=== PATIENT | male | born 1990 | race Two or more races ===

== ENCOUNTER 2024-04-06 14:50 | Emergency (ER) | payer MEDICARE, MEDICAID, SELFPAY ==
[2024-04-06 15:34] VITALS: BP 113/81; PULSE 130; RESP 18; TEMP 36.3; O2SAT 98
--- NOTE | 2024-04-06 15:47 | XR_ITS ---
Examination: CT abdomen and pelvis without contrast. Coronal 3-D reconstructions. Sagittal 2-D reconstructions. Date and time of exam:April 06, 2024 1601 hrs. Indications: Dysuria flank and abdominal pain beginning 10 days ago CTDI: vol (mGy): 8.58 DLP: (mGycm): 508 Technique: Axial images of the abdomen have been obtained, 3 mm slice thickness Intravenous contrast material has not been administered. Low dose protocols were performed. One or more of the following dose reduction techniques were used; automated exposure control, adjustment of the mA and/or KV according to patient size, use of iterative reconstruction technique. Findings: Diffuse significant fatty infiltration throughout the liver No gallstones Spleen not enlarged No pancreatic or adrenal mass No renal or ureteral calculi, no hydronephrosis Normal appendix Aorta normal size 5 mm fat-containing umbilical hernia Colonic diverticulosis, no diverticulitis Urinary bladder intact No prostatomegaly Impression: No renal or ureteral calculi, no hydronephrosis No perinephric stranding Normal appendix Colonic diverticulosis, no diverticulitis No bladder mass or bladder calculi
--- NOTE | 2024-04-06 15:47 | PD.EDADULT ---
ED General RME/HPI General Chief complaint: Urogenital-Male Stated complaint: HURTS TO PEE; BODY/THROAT HURTS Time Seen by Provider: 04/06/24 15:46 Arrival date/time: 04/06/24 14:50 CC: Painful urination HPI per the father approximately 10 days was started on cefdinir and nitrofurantoin 3 days ago without relief. Father reports no fever nausea vomiting or diarrhea. Patient states patient has a history of urinary retention secondary to a restricted ureter several years ago and is concerned whether the ureter has become rerestricted as the patient was reluctant to allow anybody to manipulate his penis for a Kinney catheter. Related Data Home Medications ?Medication ?Instructions ?Recorded ?Confirmed loratadine 10 mg tablet 10 mg PO QDAY 03/24/20 08/01/22 pediatric multivitamin no.30 1 tab PO BID 03/24/20 08/01/22 (Gummies Children Multivitamin chewable tablet) Allergies Allergy/AdvReac Type Severity Reaction Status Date / Time erythromycin base Allergy Mild RASH Verified 08/01/22 13:10 sulfisoxazole Allergy Mild RASH Verified 08/01/22 13:10 Course Orders Category Date Time Status CT abdomen pelvis wo con Stat Exams 04/06/24 15:47 Ordered CBC Stat Lab 04/06/24 15:47 Ordered CMP [Comprehensive Metabolic Panel] Stat Lab 04/06/24 15:47 Ordered Urinalysis Stat Lab 04/06/24 15:47 Ordered Vital Signs Vital signs: Vital Signs Temperature 97.3 F 04/06/24 15:34 Pulse Rate 130 H 04/06/24 15:34 Respiratory Rate 18 04/06/24 15:34 Blood Pressure 113/81 04/06/24 15:34 Pulse Oximetry (%) 98 04/06/24 15:34 Oxygen Delivery Method Room Air 04/06/24 15:34 Discharge Plan Prescriptions/Referrals Prescriptions/Med Rec: No Action loratadine 10 mg Tablet 10 mg PO QDAY Gummies Children Multivitamin Tablet,Chewable 1 tab PO BID Patient/Caregiver Discharge Instructions Print Language: [place]
--- NOTE | 2024-04-06 15:49 | EDRME_ITS ---
Rapid Medical Screening Exam [facility] Arrival date/time: 04/06/24 14:50 CC: Painful urination HPI patient has had painful urination x 10 days was seen by PCP put on cefdinir and nitrofurantoin 3 days ago without relief. 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 The patient had a Kinney placement back then but was very difficult to manage as he did not allow people to manipulate the Kinney catheter.. Chief Complaint: Urogenital-Male Time Seen by Provider: 04/06/24 15:46 Vital signs: Vital Signs Temperature 97.3 F 04/06/24 15:34 Pulse Rate 130 H 04/06/24 15:34 Respiratory Rate 18 04/06/24 15:34 Blood Pressure 113/81 04/06/24 15:34 Pulse Oximetry (%) 98 04/06/24 15:34 Oxygen Delivery Method Room Air 04/06/24 15:34
[2024-04-06 16:43] LABS: Collection Type, Urine Clean Catch
[2024-04-06 16:50] LABS: Basophils # (Auto) 0.1 Thou/mm3 (0.0-0.2); Basophils % (Auto) 0 % (0-2.5); Eosinophils % (Auto) 0 % (0-10); Hematocrit 44.8 % (41.0-53.0); Hemoglobin 15.7 g/dL (13.5-16.0); Immature Granulocytes % (Auto) 1 % (0-0); Immature Granulocytes Auto 0.08 Thou/mm3 (0.00-0.00); Lymphocytes # (Auto) 1.5 Thou/mm3 (1.0-4.8); Lymphocytes % (Auto) 12 % (10-50); Mean Corpuscular Hemoglobin 32.2 pg (25.0-35.0); Mean Corpuscular Volume 92 fL (80-100); Monocytes # (Auto) 0.4 Thou/mm3 (0.0-0.8); Monocytes % (Auto) 4 % (0-12); Neutrophils # (Auto) 10.2 Thou/mm3 (1.8-7.7); Neutrophils % (Auto) 83 % (37-80); Nucleated Red Blood Cell % 0 /100 WBC (0); Platelet Count 383 Thou/mm3 (140-440); RDW Standard Deviation 45.1 fL (35.1-43.9); Red Blood Count 4.87 Miln/mm3 (4.50-5.90); White Blood Count 12.3 Thou/mm3 (3.8-10.6)
[2024-04-06 17:04] LABS: Bilirubin,Urine 1+ (Negative); Blood,Urine Trace (Negative); Clarity,Urine Turbid (Clear/Hazy); Color,Urine Drk-Yellow (Lt Yel-Yel); Glucose, Urine Negative (Negative); Ketones,Urine Negative (Negative); Leukocyte Esterase,Urine Positive (Negative); Nitrite,Urine Positive (Negative); Protein,Urine 2+ (Neg - Trace); RBC,Urine 6 /hpf (0-3); Specific Gravity,Urine 1.032 (1.001-1.035); Sperm,Urine Present; Squamous Epithelial Cell,Urine 4 /hpf (0-5); Transitional Epi Cells,Urine 1 /hpf (0-5); WBC,Urine 11 /hpf (0-5)
[2024-04-06 17:23] LABS: Alanine Aminotransferase 49 U/L (10-49); Albumin, Serum 4.7 gm/dL (3.5-5.0); Albumin/Globulin Ratio 1.3 (1.2-2.2); Alkaline Phosphatase 51 U/L (46-116); Anion Gap 12 (7-16); Aspartate Amino Transferase 51 U/L (0-34); BUN/Creatinine Ratio 15 Ratio (12-20); Bilirubin,Total 0.9 mg/dL (0.3-1.2); Blood Urea Nitrogen 23 mg/dL (9-23); Calcium 10.1 mg/dL (8.3-10.6); Calcium (Corrected) 10.1 mg/dL (8.5-10.1); Chloride 102 mMol/L (98-107); Creatinine (Component) 1.5 mg/dL (0.6-1.3); Globulin 3.5 gm/dL (2.3-3.5); Glucose 143 mg/dL (74-106); Osmolality,Calculated 283 (275-295); Potassium 3.6 mMol/L (3.4-5.1); Sodium 139 mMol/L (136-145); Total Protein 8.2 gm/dL (5.7-8.2); eGFR > 60 See Note
[2024-04-06 18:57] VITALS: BP 111/71; PULSE 115; RESP 18; TEMP 36.5; O2SAT 97
--- NOTE | 2024-04-06 19:42 | EDNOTE_ITS ---
<Statement entered by Natalie Emanuel MD - 04/08/24 01:46> As co-signing physician, I was present and available for consult prn. I concur with the plan and care as documented by the midlevel provider. ED General RME/HPI General Chief complaint: Urogenital-Male Stated complaint: HURTS TO PEE; BODY/THROAT HURTS Time Seen by Provider: 04/06/24 15:46 Arrival date/time: 04/06/24 14:50 CC: Flank pain abdominal pain HPI onset approximately 10 days ago with progressive increase in severity patient was noted to have a UTI and started on antibiotics 3 days ago with relief. Patient also complaining of sore throat. Patient is a Down syndrome with father at bedside. They were concerned because the patient had a history 2 years ago of a ureter stricture that resulted in a Kinney catheter and they are concerned the UTI was as a result of fluid urine backup. Patient is afebrile nontoxic-appearing not in any acute distress. RME / HPI RME / HPI narrative: 04/06/24 14:50 CC: Painful urination HPI patient has had painful urination x 10 days was seen by PCP put on cefdinir and nitrofurantoin 3 days ago without relief. 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 The patient had a Kinney placement back then but was very difficult to manage as he did not allow people to manipulate the Kinney catheter.. Related Data Home Medications ?Medication ?Instructions ?Recorded ?Confirmed loratadine 10 mg tablet 10 mg PO QDAY 03/24/2008/01 pediatric multivitamin no.30 1 tab PO BID 03/24/20 (Gummies Children Multivitamin chewable tablet) Allergies Allergy/AdvReac Type Severity Reaction Status Date / Time erythromycin base Allergy Mild RASH Verified 08/01/22 13:10 sulfisoxazole Allergy Mild RASH Verified 08/01/22 13:10 Review of Systems Review of Systems Narrative Review of Systems: GEN: No fever, no chills, no weight loss EYES: No discharge, no visual changes, no pain HEENT: No ear pain, no congestion, no sore throat PULM: No shortness of breath, no cough, no congestion CV: No chest pain, no dyspnea on exertion, no palpitations GI: No nausea, no vomiting, no diarrhea, no pain, no constipation : No frequency, no urgency, no dysuria MUSC/SKEL: No joint pain, no back pain SKIN: No rash PSYCH: No hallucinations, no depression HEME/LYMPH: No easy bleeding or bruising tendencies NEURO: No weakness, no headache Past Medical History Past Medical History NEUROLOGIC: Negative Seizures CARDIAC: Positive Cardiac Disorders (clogged artery ) and Cardiac Arrhythmia (heart murmur); Negative Congestive Heart Failure RESPIRATORY: Negative Chronic Obstructive Pulmonary Disease (COPD) or Asthma GASTROINTESTINAL: Negative Gastrointestinal Disorders GENITOURINARY: Positive Genitourinary Disorders; Negative Renal Disease MUSCULOSKELETAL: Negative Musculoskeletal Disorders ENDOCRINE: Negative Endocrine Disorders, Diabetes Mellitus Type 1 or Diabetes Mellitus Type 2 HEMATOLOGIC: Negative Blood Disorders or Sickle Cell Disease OTHER HISTORY: Positive Down Syndrome; Negative Blood Transfusions, Blood Transfusion Reaction, Anesthesia Reactions, Chicken Pox, Measles, Mumps or Cancer Social History SMOKING STATUS: Never smoker ED Exam Narrative Physical exam: [General: Not in any acute distress Head normocephalic HEENT: Within acceptable limits Neck is supple nontender Chest equal chest rise nontender to palpation Respiratory: Clear to auscultation no wheezes crackles or rubs CV: Rate rhythm is regular no murmurs rubs or clicks Abdomen is soft nontender no masses positive bowel sounds all 4 quadrants Back: No CVA tenderness no spinous process tenderness from cervical spine thoracic and lumbar spine Skin: Intact no petechiae rash induration ulceration or crepitus Extremities: Moving all extremity against resistance cap refill less than 2 seconds neurosensory intact Neuro: Awake alert oriented x3 Glascow coma 15 no focal deficits] Course Quality Measures none Orders Category Date Time Status CT abdomen pelvis wo con Stat Exams 04/06/24 15:47 Completed CBC Stat Lab 04/06/24 16:34 Completed CMP [Comprehensive Metabolic Panel] Stat Lab 04/06/24 16:34 Completed Strep A Rapid Stat Lab 04/06/24 19:43 Completed Urinalysis Stat Lab 04/06/24 16:33 Completed Vital Signs Vital signs: Vital Signs Temperature 97.3 F 04/06/24 15:34 Pulse Rate 130 H 04/06/24 15:34 Respiratory Rate 18 04/06/24 15:34 Blood Pressure 113/81 04/06/24 15:34 Pulse Oximetry (%) 98 04/06/24 15:34 Oxygen Delivery Method Room Air 04/06/24 15:34 [facility] Patient data External records reviewed:: [facility] previous records Clinical information provided by:: patient and parent Social determinants that could affect healthcare access:: none Patient has the following chronic illnesses:: Down syndrome prior history of ureter stricture How is presenting disease/condition affected by chronic disease/condition?: u neffected by Evaluation data The following diagnostics were reviewed and interpreted by me:: lab results and radiology exam(s) Lab and/or radiology exams considered but not ordered:: Urine shows positive urinary tract infection CBC shows a mild leukocytosis of 12.3 no anemia thrombocytopenia CMP shows no acute acute electrolyte imbalances creatinine of 1.5 BUN is normal glucose of 143 no transaminitis or T. bili elevation CT of the abdomen shows no acute cystitis bladder enlargement or other acute finding requires emergent or immediate intervention. Strep is negative Interpretation Summary: UTI I suspect is the culprit and here patient is to continue on both antibiotics and follow-up with a primary care provider. Medications Medications considered but not ordered:: None Medication administrations:: None Consultations Consultation(s) initiated? (list below): No Diagnosis Differential Diagnosis ED Complaint MDM: UTI pyelonephritis strep pharyngitis Most likely diagnosis given after review of the tests above:: UTI Admission Indicated Admission indicated?: not indicated Explain why admission is indicated or not indicated:: Stable for discharge Admission Request Was there a request for admission?: No Disposition Plan Disposition Plan: Discharge Discharge Attestation Discharge Attestation: The patient and all family members were given an opportunity to ask questions and understood the discharge instructions. Discharge instructions specifically effects, indications for sooner follow up or return to the emergency department, and the expected course of current diagnosis. Patient condition: Stable Medical Decision Making Differential Diagnosis Differential Diagnosis: UTI pyelonephritis strep pharyngitis Lab Data 04/06/24 16:34 04/06/24 16:34 Labs: Lab Results 04/06/24 04/06/24 04/06/24 Range/Units 16:33 16:34 19:43 WBC 12.3 H (3.8-10.6) Thou/mm3 RBC 4.87 (4.50-5.90) Miln/mm3 Hgb 15.7 (13.5-16.0) g/dL Hct 44.8 (41.0-53.0) % MCV 92 (80-100) fL MCH 32.2 (25.0-35.0) pg MCHC 35.0 (31.0-37.0) g/dl RDW Std Deviation 45.1 H (35.1-43.9) fL Plt Count 383 (140-440) Thou/mm3 Neut % (Auto) 83 H (37-80) % Lymph % (Auto) 12 (10-50) % Gray % (Auto) 4 (0-12) % Eos % (Auto) 0 (0-10) % Baso % (Auto) 0 (0-2.5) % Neut # (Auto) 10.2 H (1.8-7.7) Thou/mm3 Lymph # (Auto) 1.5 (1.0-4.8) Thou/mm3 Gray # (Auto) 0.4 (0.0-0.8) Thou/mm3 Eos # (Auto) 0.0 (0.0-0.5) Thou/mm3 Baso # (Auto) 0.1 (0.0-0.2) Thou/mm3 Immature Gran # (Auto) 0.08 H (0.00-0.00) Thou/mm3 Absolute Nucleated RBC 0.00 (0.00-0.00) Thou/mm3 Immature Gran % 1 H (0-0) % Nucleated RBC % 0 (0) /100 WBC Sodium 139 (136-145) mMol/L Potassium 3.6 (3.4-5.1) mMol/L Chloride 102 (98-107) mMol/L Carbon Dioxide 25.0 (20.0-31.0) mMol/L Anion Gap 12 (7-16) BUN 23 (9-23) mg/dL Creatinine 1.5 H (0.6-1.3) mg/dL Estim Creat Clear Calc Not Performed. eGFR > 60 (60 - ) See Note BUN/Creatinine Ratio 15 (12-20) Ratio Glucose 143 H (74-106) mg/dL Calculated Osmolality 283 (275-295) Calcium 10.1 (8.3-10.6) mg/dL Corrected Calcium 10.1 (8.5-10.1) mg/dL Total Bilirubin 0.9 (0.3-1.2) mg/dL AST 51 H (0-34) U/L ALT 49 (10-49) U/L Alkaline Phosphatase 51 (46-116) U/L Total Protein 8.2 (5.7-8.2) gm/dL Albumin 4.7 (3.5-5.0) gm/dL Globulin 3.5 (2.3-3.5) gm/dL Albumin/Globulin Ratio 1.3 (1.2-2.2) Ur Collection Type Clean Catch Urine Color Drk-Yellow A (Lt Yel-Yel) Urine Clarity Turbid A (Clear/Hazy) Urine pH 6.0 (5.0-7.0) Ur Specific [place] 1.032 (1.001-1.035) Urine Protein 2+ A (Neg - Trace) Urine Glucose (UA) Negative (Negative) Urine Ketones Negative (Negative) Urine Blood Trace (Negative) Urine Nitrite Positive (Negative) Urine Bilirubin 1+ A (Negative) Urine Urobilinogen (Auto) 3.0 (0.0-1.0) mg/dL Ur Leukocyte Esterase Positive (Negative) Urine RBC 6 H (0-3) /hpf Urine WBC 11 H (0-5) /hpf Ur Squamous Epith Cells 4 (0-5) /hpf Ur Transition Epith Cell 1 (0-5) /hpf Urine Bacteria None (None) Urine Sperm Present A (None) Group A Strep Rapid Negative (Negative) Discharge Plan Plan Patient Disposition: HOME (Self Care) Patient condition on transfer: Stable Prescriptions/Referrals Prescriptions/Med Rec: No Action loratadine 10 mg Tablet 10 mg PO QDAY Gummies Children Multivitamin Tablet,Chewable 1 tab PO BID Referrals: Kamar (PCP),MD Michael [Primary Care Provider] - In 1 week Problem List Clinical Impression: Sore throat, UTI symptoms Patient/Caregiver Discharge Instructions Education Materials: Self-Care for Sore Throats, ED Urinary Tract Infections in Men Print Language: [place] Stand Alone Forms: Nyasia Award Info., Work/School Release, Patient Portal Info Letter PA/KALA Supervising Physician PA/KALA Supervising Physician: Hermes Friend ENP
[2024-04-06 20:56] LABS: Strep A Rapid Negative (Negative)
[2024-04-06 21:10] VITALS: PULSE 71; RESP 18; TEMP 36.6; O2SAT 99
== END 2024-04-06 21:11 | disposition home or self-care (01) ==
PROVIDERS: Registered Nurse General Practice; Emergency Provider Emergency Medicine; PCP Family Medicine
DX: N39.0 Urinary tract infection, site not specified (principal); J02.9 Acute pharyngitis, unspecified
CPT/HCPCS: 36415; 74176; 80053; 81001; 85025; 87651; 99284

== ENCOUNTER 2024-04-14 14:52 | Emergency (ER) | payer MEDICARE, MEDICAID, SELFPAY ==
[2024-04-14] VITALS (12 sets, daily range): BP systolic 118–131; BP diastolic 55–88; PULSE 98–145; RESP 15–94; TEMP 36.7–36.9; O2SAT 94–99; BMI 31.7
--- NOTE | 2024-04-14 16:37 | PC.NURSE ---
PT AAOX4 WITH BROTHER AT BEDSIDE STATES THAT HE IS NOT WANTING TO BE COMPLIANT AT HOME, NOT WANTING TO EAT AND HAVE A BEHAVIORAL ISSUE AT HOME.
--- NOTE | 2024-04-14 18:22 | EDNOTE_ITS ---
ED General RME/HPI General Chief complaint: General Adult/Misc Complain Stated complaint: WEAKNESS Source: patient, family and EMS Arrival date/time: 04/14/24 14:52 Mode of arrival: EMS RME / HPI RME / HPI narrative: Dr. Hudson?s Main ED Evaluation: 33-year-old developmentally delayed male was brought in by ambulance from home due to weakness. According to EMS, the family reports that he has been less active than usual, with decreased oral intake and a lack of interest in activities. The patient also reports pain, particularly with eating, urination and bowel movements. He was evaluated in the ED last week for a urinary tract infection (UTI) and was treated with antibiotics. The patient was observed rubbing his throat. His director content marketing, present at the bedside, reports that this behavior has been a tic for the past year. HPI and ROS provided by family/director content marketing at bedside. Related Data Home Medications ?Medication ?Instructions ?Recorded ?Confirmed loratadine 10 mg tablet 10 mg PO QDAY 03/24/2004/14 pediatric multivitamin no.30 1 tab PO BID 03/24/2005/06 (Gummies Children Multivitamin chewable tablet) SERTRALINE HCL 50 mg PO QDAY 04/14/2404/14 olanzapine 5 mg disintegrating 5 mg PO QDAY 04/14/24 0 04/14/24 tablet sertraline 25 mg tablet See Rx Instructions .Route . COMPLEX 04/14/24 04/14/24 Held on 04/14/24. Instructions: Order Change Previous Rx's ?Medication ?Instructions ?Recorded fluconazole 40 mg/mL oral 150 mg (3.75 mL) PO QDAY 21 days 04/14/24 suspension (Diflucan) #78.75 mL lorazepam 0.5 mg tablet (Ativan) 0.5 mg PO QHSPRN PRN anxiety #10 04/14/24 tabs Allergies Allergy/AdvReac Type Severity Reaction Status Date / Time erythromycin base Allergy Mild RASH Verified 04/14/24 18:05 sulfisoxazole Allergy Mild RASH Verified 04/14/24 18:05 Review of Systems Review of Systems Systems Reviewed: All systems reviewed, normal except as documented Narrative Review of Systems: HPI and ROS provided by family/director content marketing at bedside. Past Medical History Past Medical History NEUROLOGIC: Negative Seizures CARDIAC: Positive Cardiac Disorders, Cardiac Arrhythmia and Heart Murmur; Negative Congestive Heart Failure RESPIRATORY: Negative Chronic Obstructive Pulmonary Disease (COPD) or Asthma GASTROINTESTINAL: Negative Gastrointestinal Disorders GENITOURINARY: Positive Genitourinary Disorders; Negative Renal Disease MUSCULOSKELETAL: Negative Musculoskeletal Disorders ENDOCRINE: Negative Endocrine Disorders, Diabetes Mellitus Type 1 or Diabetes Mellitus Type 2 HEMATOLOGIC: Negative Blood Disorders or Sickle Cell Disease OTHER HISTORY: Positive Down Syndrome; Negative Blood Transfusions, Blood Transfusion Reaction, Anesthesia Reactions, Chicken Pox, Measles, Mumps or Cancer Social History SMOKING STATUS: Never smoker ED Exam Narrative Physical exam: GENERAL APPEARANCE: alert and oriented to person and place, developmentally delayed, noteable for down syndrome, well-developed, well-nourished VITALS: All vitals were reviewed and the pulse ox is % on room air, which is normal according to my interpretation. HEENT: Normocephalic, atraumatic; pupils equal, round, reactive to light; EOMI. The patient exhibits intraoral and posterior oropharyngeal injection with extensive white plaque-like exudates over the pharynx and soft palate. NECK: Supple LUNGS: CTABL; no wheezes, no rales, no rhonchi HEART: Regularly tachycardic rate in the 120s, regular rhythm; normal S1, S2; no murmurs ABDOMEN: non distended; normal BS; soft, no tenderness, no guarding, no rebound; no masses, no organomegaly, no hernia BACK: no CVA tenderness EXTREMITIES: atraumatic; no edema NEUROLOGIC: awake; alert and oriented x4; cranial nerves II-XII grossly intact; no focal sensory or motor deficits PSYCHIATRIC: appropriate mood and affect SKIN: warm, dry, normal color; no rashes Course Course Course Narrative: 1824 Sepsis alert initiated. Orders made at this time are congruent with ED Adult Sepsis Order List. Re-evaluation is to be completed. 1854 Sepsis reassessment performed consisting of lab review, vitals, physical exam including auscultation of heart, lungs, and visual evaluation of capillary refills, mucosal membranes and extremities. Quality Measures Current suspected stage: sepsis Possible source: unknown Blood cultures ordered: yes Antibiotic ordered: Yes Pertinent labs: 04/14/24 18:45 Lactic Acid 2.1 H mMol/L (0.4-2.0) Procalcitonin 0.08 ng/ml (0.0-0.49) sepsis Orders Category Date Time Status Bedside COVID-19 Antigen Test NOW Care 04/14/24 18:29 Active Bedside Influenza A&B Antigen Test NOW Care 04/14/24 18:29 Completed Cloth Stock Sorter STAT Care 04/14/24 18:24 Active Continuous Pulse Oximetry STAT Care 04/14/24 18:24 Completed EKG (ED ONLY) *Do not use* NOW Care 04/14/24 18:24 Completed Insert IV NOW Care 04/14/24 18:24 Completed Miscellaneous Nursing Order NOW Care 04/14/24 18:23 Active NPO STAT Care 04/14/24 18:24 Active EKG (ED Only) Stat Exams 04/14/24 18:24 Ordered XR chest 1V portable Stat Exams 04/14/24 18:23 Completed B-Type Natriuretic Peptide Stat Lab 04/14/24 18:45 Completed Blood Culture (Lab) Stat Lab 04/14/24 18:45 Received CBC Stat Lab 04/14/24 18:45 Completed Comprehensive Metabolic Panel Stat Lab 04/14/24 18:45 Completed LDH (Lactate Dehydrogenase) Stat Lab 04/14/24 18:45 Completed Lactate (Lactic Acid) Stat Lab 04/14/24 18:45 Results Lipase Stat Lab 04/14/24 18:45 Completed Magnesium Stat Lab 04/14/24 18:45 Completed Partial Thromboplastin Time Stat Lab 04/14/24 18:45 Completed Phosphorous Stat Lab 04/14/24 18:45 Completed Procalcitonin Stat Lab 04/14/24 18:45 Completed Prothrombin Time with INR Stat Lab 04/14/24 18:45 Completed Strep A Rapid Stat Lab 04/14/24 19:02 Ordered Troponin I Stat Lab 04/14/24 18:45 Completed Urinalysis Stat Lab 04/14/24 19:02 Completed Urine Culture Stat Lab 04/14/24 18:57 Received VBG [Venous Blood Gas] Stat Lab 04/14/24 18:45 Completed Acetaminophen Ivpb [Ofirmev Inj] Med 04/14/24 19:24 Discontinued 1,000 mg in 100 ml IV X1 Dexamethasone Inj [Decadron Inj] Med 04/14/24 19:24 Discontinued 10 mg PO X1 ONE Fluconazole Susp [Diflucan Susp] Med 04/14/24 19:30 Discontinued 200 mg PO X1 ONE Ketorolac Inj [Toradol Inj] Med 04/14/24 19:24 Discontinued 30 mg IVP X1 ONE Lidocaine 2% Viscous [Xylocaine 2% Viscous] Med 04/14/24 19:30 Discontinued 15 ml PO X1 ONE Sodium Chloride 0.9% 1000 ml [Ns] 1,000 ml Med 04/14/24 20:40 Active IV 999 mls/hr Sodium Chloride 0.9% 1000 ml [Ns] 1,776 ml Med 04/14/24 18:23 Discontinued IV 1,776 mls/hr cefTRIAXone [Rocephin] 1,000 mg Med 04/14/24 18:23 Discontinued SODIUM CHLORIDE 0.9% (Popper) [Ns 0.9% (P)] 50 ml IV X1 Oxygen Delivery NOW RT 04/14/24 18:24 Active Vital Signs Vital signs: Vital Signs Temperature 98.3 F 04/14/24 15:32 Pulse Rate 136 H 04/14/24 15:32 Respiratory Rate 18 04/14/24 15:32 Blood Pressure 128/79 04/14/24 15:32 Pulse Oximetry (%) 96 04/14/24 15:32 Oxygen Delivery Method Room Air 04/14/24 15:32 Procedures -ED EKG Interpretation #1: Date of EK04/14/24 Time of EK:32 Rate: 123 Interpretation: Interpreted by me Additional EKG comment: The EKG, taken on 04/14/24 at 18:32, shows sinus tachycardia with a heart rate of 123 bpm, a normal axis, and no ectopy. Q waves are present in leads II, III, and aVF, with ST abnormalities noted in V1-V5. No evidence of STEMI according to my interpretation. [facility] Patient data External records reviewed:: [facility] previous records and EMS form Clinical information provided by:: family Social determinants that could affect healthcare access:: none Patient has the following chronic illnesses:: see PMH How is presenting disease/condition affected by chronic disease/condition?: u neffected by Evaluation data The following diagnostics were reviewed and interpreted by me:: lab results, radiology exam(s) and EKG tracing(s) Lab and/or radiology exams considered but not ordered:: na Interpretation Summary: 1937 The patient has a normal anion gap with a lactate of 2.1. Findings are consistent with dehydration. Additional workup is still pending. Examination: AP chest single view Exam date and time: April 14, 2024 1919 hrs. Comparison November 13, 2016 Indications: Sepsis today. Findings: Suspicious for early right base pneumonia Normal heart size The osseous structures are intact Impression: Suspicious for early right base pneumonia Dictated By: Deven Puckett MD Medications Medications considered but not ordered:: na Medication administrations:: Medication Administration History Sodium Chloride (Ns) 1,000 mls @ 999 mls/hr IV .Q1H1M ONE Stop: 04/14/24 21:40 Last Admin: 04/14/24 20:59 Dose: 999 mls/hr Documented By: TC Discontinued Medications Dexamethasone Sodium Phosphate (Dexamethasone Sod Phos Inj 10 Mg/Ml Vial) 10 mg PO X1 ONE Stop: 04/14/24 19:25 Last Admin: 04/14/24 20:01 Dose: 10 mg Documented By: TC Fluconazole (Fluconazole Susp 40 Mg/Ml Ml) 200 mg PO X1 ONE Stop: 04/14/24 19:31 Last Admin: 04/14/24 20:51 Dose: 200 mg Documented By: TC Sodium Chloride (Ns) 1,776 mls @ 1,776 mls/hr 30 ml/kg infuse over 60 min (1776 ml) IV .Q1H ONE Stop: 04/14/24 19:22 Last Infusion: 04/14/24 21:00 Dose: Infused Documented By: Admin: 04/14/24 18:43 Dose: 1,776 mls/hr Documented By: BD Ceftriaxone Sodium 1,000 mg/ (Sodium Chloride) 50 mls @ 100 mls/hr IV X1 ONE Stop: 04/14/24 18:52 Last Infusion: 04/14/24 21:00 Dose: Infused Documented By: Admin: 04/14/24 19:57 Dose: 100 mls/hr Documented By: TC Acetaminophen (Ofirmev Inj) 1,000 mg in 100 mls @ 250 mls/hr IV X1 ONE Stop: 04/14/24 19:47 Last Infusion: 04/14/24 20:59 Dose: Infused Documented By: Admin: 04/14/24 19:54 Dose: 250 mls/hr Documented By: TC Ketorolac Tromethamine (Ketorolac Inj 30 Mg/Ml Vial) 30 mg IVP X1 ONE Stop: 04/14/24 19:25 Last Admin: 04/14/24 20:01 Dose: 30 mg Documented By: RICHY Lidocaine HCl (Lidocaine Viscous 2% 15 Ml Udc) 15 ml PO X1 ONE Stop: 04/14/24 19:31 Last Admin: 04/14/24 20:51 Dose: 15 ml Documented By: RICHY as above Consultations Consultation(s) initiated? (list below): No Diagnosis Differential Diagnosis ED Complaint MDM: see narrative Most likely diagnosis given after review of the tests above:: Thrush of mouth and esophagus, Dehydration Admission Indicated Admission indicated?: not indicated Explain why admission is indicated or not indicated:: No significant findings indicating inpatient admission Admission Request Was there a request for admission?: No Disposition Plan Disposition Plan: Discharge Discharge Attestation Discharge Attestation: The patient and all family members were given an opportunity to ask questions and understood the discharge instructions. Discharge instructions specifically effects, indications for sooner follow up or return to the emergency department, and the expected course of current diagnosis. Patient condition: Stable Medical Decision Making MDM Narrative MDM Narrative: Differential diagnoses include dehydration, urosepsis, pneumonia-related sepsis, streptococcal infection, esophageal or pharyngeal thrush, and arrhythmia. Scribe Attestation: IFish am scribing for and in the presence of Dr. Hudson. Provider Notation: Although this document has been carefully reviewed, there may still be some phonetic and other typographical errors. These errors are purely grammatical due to imperfections in the software program and should not be construed in any way to compromise the substance of the patient's medical care during this visit. Differential Diagnosis Differential Diagnosis: see narrative Medical Records Medical records reviewed: Yes I reviewed the patient's medical records. Lab Data Lab results reviewed: Yes I reviewed the patient's lab results. 04/14/24 18:45 04/14/24 18:45 Labs: Lab Results 04/14/24 04/14/24 Range/Units 18:45 19:02 WBC 11.2 H (3.8-10.6) Thou/mm3 RBC 4.33 L (4.50-5.90) Miln/mm3 Hgb 13.9 (13.5-16.0) g/dL Hct 40.2 L (41.0-53.0) % MCV 93 (80-100) fL MCH 32.1 (25.0-35.0) pg MCHC 34.6 (31.0-37.0) g/dl RDW Std Deviation 46.5 H (35.1-43.9) fL Plt Count 280 D (140-440) Thou/mm3 Neut % (Auto) 81 H (37-80) % Lymph % (Auto) 13 (10-50) % [place] % (Auto) 5 (0-12) % Eos % (Auto) 1 (0-10) % Baso % (Auto) 0 (0-2.5) % Neut # (Auto) 9.1 H (1.8-7.7) Thou/mm3 Lymph # (Auto) 1.4 (1.0-4.8) Thou/mm3 [place] # (Auto) 0.5 (0.0-0.8) Thou/mm3 Eos # (Auto) 0.1 (0.0-0.5) Thou/mm3 Baso # (Auto) 0.1 (0.0-0.2) Thou/mm3 Immature Gran # (Auto) 0.03 H (0.00-0.00) Thou/mm3 Absolute Nucleated RBC 0.00 (0.00-0.00) Thou/mm3 Immature Gran % 0 (0-0) % Nucleated RBC % 0 (0) /100 WBC PT 11.5 (9.0-12.2) Seconds INR 1.1 (0.9-1.3) APTT 26.1 (22.0-36.0) Seconds VBG pH 7.46 (7.33-7.66) VBG pCO2 32 L (36-56) mmHg VBG pO2 81 H (15-58) mmHg VBG O2 Sat (Luis Manuel) 97 (96-97) % VBG Base Excess -1 (-3-3) Sodium 144 (136-145) mMol/L Potassium 3.7 (3.4-5.1) mMol/L Chloride 111 H (98-107) mMol/L Carbon Dioxide 23.2 (20.0-31.0) mMol/L Anion Gap 10 (7-16) BUN 16 (9-23) mg/dL Creatinine 1.0 (0.6-1.3) mg/dL Estim Creat Clear Calc 102.7 (>60) mL/min eGFR > 60 (60 - ) See Note BUN/Creatinine Ratio 16 (12-20) Ratio Glucose 123 H (74-106) mg/dL Calculated Osmolality 289 (275-295) Lactic Acid 2.1 H (0.4-2.0) mMol/L Calcium 9.5 (8.3-10.6) mg/dL Corrected Calcium 9.5 (8.5-10.1) mg/dL Phosphorus 3.3 (2.4-5.1) mg/dL Magnesium 1.7 (1.6-2.6) mg/dL Total Bilirubin 0.6 (0.3-1.2) mg/dL AST 17 (0-34) U/L ALT 36 (10-49) U/L Alkaline Phosphatase 55 (46-116) U/L Lactate Dehydrogenase 163 (120-246) U/L Troponin I < 0.020 (0.0-0.045) ng/mL B-Natriuretic Peptide < 20 (0-100) pg/mL Total Protein 7.5 (5.7-8.2) gm/dL Albumin 4.2 (3.5-5.0) gm/dL Globulin 3.3 (2.3-3.5) gm/dL Albumin/Globulin Ratio 1.3 (1.2-2.2) Lipase 51 (12-53) U/L Procalcitonin 0.08 (0.0-0.49) ng/ml Ur Collection Type Clean Catch Urine Color Yellow (Lt Yel-Yel) Urine Clarity Clear (Clear/Hazy) Urine pH 6.0 (5.0-7.0) Ur Specific Sullivan 1.035 (1.001-1.035) Urine Protein Trace (Neg - Trace) Urine Glucose (UA) Negative (Negative) Urine Ketones Trace (Negative) Urine Blood Negative (Negative) Urine Nitrite Negative (Negative) Urine Bilirubin Negative (Negative) Urine Urobilinogen (Auto) Negative (0.0-1.0) mg/dL Ur Leukocyte Esterase Negative (Negative) Urine RBC 3 (0-3) /hpf Urine WBC 2 (0-5) /hpf Ur Squamous Epith Cells 1 (0-5) /hpf Urine Bacteria Rare (None) Radiology Data Radiology results reviewed: Yes I reviewed the patient's radiology results. Critical Care Time Critical Care Time Critical Care Time: Yes Total Critical Care Time (min.): 45 Attestation: The high probability of sudden, clinically significant deterioration in the patient?s condition required the highest level of my preparedness to intervene urgently. ? The services I provided to this patient were to treat and/or prevent clinically significant deterioration. Services included the following: chart data review, reviewing nursing notes and/or old charts, documentation time, [employer] web[employer] commerce consultant collaboration regarding findings and treatment options, medication orders and management, direct patient care, vital sign assessments and ordering, interpreting and reviewing diagnostic studies and lab tests. ? Aggregate critical care time includes only time during which I was engaged in work directly related to the patient?s care, as described above, whether at bedside or elsewhere in the Emergency Department. It did not include time spent performing other reported procedures or the services of residents, students, nurses or physician assistants. Discharge Plan Plan Patient Disposition: HOME (Self Care) Disposition Comment: Stable for her discharge Patient condition on transfer: Stable Prescriptions/Referrals Prescriptions/Med Rec: New fluconazole [Diflucan] 40 mg/mL suspension for reconstitution 150 mg PO QDAY 21 Days Qty: 78.75 0RF lorazepam [Ativan] 0.5 mg tablet 0.5 mg PO QHSPRN PRN (Reason: anxiety) Qty: 10 0RF No Action loratadine 10 mg Tablet 10 mg PO QDAY Gummies Children Multivitamin Tablet,Chewable 1 tab PO BID olanzapine 5 mg tablet,disintegrating 5 mg PO QDAY Patient Comments: PLACE 1 TABLET ON THE TONGUE AND ALLOW TO DISSOLVE DAILY sertraline 25 mg tablet See Rx Instructions .ROUTE .COMPLEX Patient Comments: TOME 1 TABLETA POR V A ORAL TODOS LOS D Rx Instructions: 50 MG PO QD; SERTRALINE HCL 50 mg PO QDAY Referrals: Kamar (PCP)Michael MD [Primary Care Provider] - In 1 week Problem List Clinical Impression: Thrush of mouth and esophagus, Dehydration Patient/Caregiver Discharge Instructions Discharge Activity: activity as tolerated Education Materials: Dehydration, Yanet Infection: Thrush, ED Esophagitis, Yanet Additional Instructions: Please return to the emergency department if Jordy has any further medical problems or if he is worsening in any way and we will help you. Otherwise you should follow-up with your primary care doctor within the next several days I believe Jordy has oral and may be esophageal thrush. This is a fungal infection and is quite painful. If you look in the back of his throat you will see that is very red and that there are white, plaque-like exudates. The medicine for this is called fluconazole. There is some of this is waiting for you at your pharmacy. Jordy should receive this once per day for the next 3 weeks. There is also a prescription for Ativan which is best given at night before he goes to bed. Print Language: Hong Konger Stand Alone Forms: [employer] Award Info., Patient Portal Info Letter
--- NOTE | 2024-04-14 18:23 | XR_ITS ---
Examination: AP chest single view Technique one AP portable upright chest single view Exam date and time: April 14, 2024 1919 hrs. Comparison November 13, 2016 Indications: Sepsis today. Findings: Suspicious for early right base pneumonia Normal heart size The osseous structures are intact Impression: Suspicious for early right base pneumonia
--- NOTE | 2024-04-14 18:24 | EKG_ITS ---
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
--- NOTE | 2024-04-14 18:26 | PC.NURSE ---
SEPSIS ALERT INITIATED @182
[2024-04-14] MEDS: SODIUM CHLORIDE 0.9% 1000 ML 1,776 ML 1776 ML IV (18:43)
--- NOTE | 2024-04-14 18:56 | PC.NURSE ---
IN AND OUT NOT DONE PT USED URINAL
[2024-04-14 19:10] LABS: Lactate (Lactic Acid) 2.1 mMol/L (0.4-2.0)
[2024-04-14 19:16] LABS: Basophils # (Auto) 0.1 Thou/mm3 (0.0-0.2); Basophils % (Auto) 0 % (0-2.5); Eosinophils # (Auto) 0.1 Thou/mm3 (0.0-0.5); Eosinophils % (Auto) 1 % (0-10); Hematocrit 40.2 % (41.0-53.0); Hemoglobin 13.9 g/dL (13.5-16.0); Immature Granulocytes % (Auto) 0 % (0-0); Immature Granulocytes Auto 0.03 Thou/mm3 (0.00-0.00); Lymphocytes # (Auto) 1.4 Thou/mm3 (1.0-4.8); Lymphocytes % (Auto) 13 % (10-50); Mean Corpuscular HGB Conc 34.6 g/dl (31.0-37.0); Mean Corpuscular Hemoglobin 32.1 pg (25.0-35.0); Mean Corpuscular Volume 93 fL (80-100); Monocytes # (Auto) 0.5 Thou/mm3 (0.0-0.8); Monocytes % (Auto) 5 % (0-12); Neutrophils # (Auto) 9.1 Thou/mm3 (1.8-7.7); Neutrophils % (Auto) 81 % (37-80); Nucleated Red Blood Cell % 0 /100 WBC (0); Platelet Count 280 Thou/mm3 (140-440); RDW Standard Deviation 46.5 fL (35.1-43.9); Red Blood Count 4.33 Miln/mm3 (4.50-5.90); White Blood Count 11.2 Thou/mm3 (3.8-10.6)
[2024-04-14 19:19] LABS: Collection Type, Urine Clean Catch
[2024-04-14 19:21] LABS: Base Excess, Venous -1 (-3-3); O2 Saturation, Venous 97 % (96-97); PCO2, Venous 32 mmHg (36-56); PO2, Venous 81 mmHg (15-58); pH, Venous 7.46 (7.33-7.66)
[2024-04-14 19:24] LABS: INR 1.1 (0.9-1.3); Partial Thromboplastin Time 26.1 Seconds (22.0-36.0); Prothrombin Time 11.5 Seconds (9.0-12.2)
[2024-04-14 19:33] LABS: Alanine Aminotransferase 36 U/L (10-49); Albumin, Serum 4.2 gm/dL (3.5-5.0); Albumin/Globulin Ratio 1.3 (1.2-2.2); Alkaline Phosphatase 55 U/L (46-116); Anion Gap 10 (7-16); Aspartate Amino Transferase 17 U/L (0-34); BUN/Creatinine Ratio 16 Ratio (12-20); Bilirubin,Total 0.6 mg/dL (0.3-1.2); Blood Urea Nitrogen 16 mg/dL (9-23); Calcium 9.5 mg/dL (8.3-10.6); Calcium (Corrected) 9.5 mg/dL (8.5-10.1); Carbon Dioxide 23.2 mMol/L (20.0-31.0); Chloride 111 mMol/L (98-107); Estimated Creatinine Clearance 102.7 mL/min (>60); Globulin 3.3 gm/dL (2.3-3.5); Glucose 123 mg/dL (74-106); LDH (Lactate Dehydrogenase) 163 U/L (120-246); Lipase 51 U/L (12-53); Magnesium 1.7 mg/dL (1.6-2.6); Osmolality,Calculated 289 (275-295); Phosphorous 3.3 mg/dL (2.4-5.1); Potassium 3.7 mMol/L (3.4-5.1); Procalcitonin 0.08 ng/ml (0.0-0.49); Sodium 144 mMol/L (136-145); Total Protein 7.5 gm/dL (5.7-8.2); Troponin I < 0.020 ng/mL (0.0-0.045); eGFR > 60 See Note
[2024-04-14 19:36] LABS: Bacteria,Urine Rare; Bilirubin,Urine Negative (Negative); Blood,Urine Negative (Negative); Clarity,Urine Clear (Clear/Hazy); Color,Urine Yellow (Lt Yel-Yel); Glucose, Urine Negative (Negative); Ketones,Urine Trace (Negative); Leukocyte Esterase,Urine Negative (Negative); Nitrite,Urine Negative (Negative); Protein,Urine Trace (Neg - Trace); RBC,Urine 3 /hpf (0-3); Specific Gravity,Urine 1.035 (1.001-1.035); Squamous Epithelial Cell,Urine 1 /hpf (0-5); Urobilinogen,Urine Negative mg/dL (0.0-1.0); WBC,Urine 2 /hpf (0-5)
[2024-04-14 19:49] LABS: B-Type Natriuretic Peptide < 20 pg/mL (0-100)
[2024-04-14] MEDS: ACETAMINOPHEN IVPB 1,000 MG/100 ML VIAL 250 MG IV (19:54)
[2024-04-14] MEDS: cefTRIAXone 1,000 MG in SODIUM CHLORIDE 0.9% (Popper) 50 ML 100 MG IV (19:57)
[2024-04-14] MEDS: DEXAMETHASONE SOD PHOS INJ 10 MG/ML VIAL PO (20:01)
[2024-04-14] MEDS: KETOROLAC INJ 30 MG/ML VIAL IVP (20:01)
[2024-04-14] MEDS: FLUCONAZOLE SUSP 40 MG/ML ML 200 MG PO (20:51)
[2024-04-14] MEDS: LIDOCAINE VISCOUS 2% 15 ML UDC PO (20:51)
[2024-04-14] MEDS: SODIUM CHLORIDE 0.9% 1000 ML 1,000 ML 999 ML IV (20:59)
[2024-04-14 22:02] LABS: Reflex Lactate? Y
[2024-04-14 22:42] LABS: Lactic Acid, 3 HR 1.2 mMol/L (0.4-2.0)
[2024-04-14 23:07] LABS: Strep A Rapid Negative (Negative)
== END 2024-04-14 23:14 | disposition home or self-care (01) ==
PROVIDERS: Emergency Provider Emergency Medicine; PCP Family Medicine
DX: B37.0 Candidal stomatitis (principal); E86.0 Dehydration; R00.0 Tachycardia, unspecified; Z88.1 Allergy status to other antibiotic agents; Z88.2 Allergy status to sulfonamides
CPT/HCPCS: 36415; 71045; 80053; 81001; 82803; 83605; 83615; 83690; 83735; 83880; 84100; 84145; 84484; 85025; 85610; 85730; 87040; 87086; 87400; 87651; 87811; 93005; 96361; 96365; 96368; 96375; 99291; J0131; J0696; J1100; J1885; J3490; J7030; J7050

== ENCOUNTER → 2024-10-03 | Outpatient (CLI) | payer OTHER, MEDICAID, SELFPAY ==
--- NOTE | 2024-10-03 14:12 | XR_ITS ---
Examination: Sinus series 3 views TECHNIQUE: Serena Calhoun lateral sinus series 3 views Date and time: October 03, 2024 1538 hours INDICATIONS: Sinus pressure and pain 3 months. FINDINGS: No developed frontal air cells. Mild opacity in the ethmoid air cells No fluid levels No cortical bone destruction No retention cysts IMPRESSION: Mild chronic ethmoid sinusitis
== END | disposition home or self-care (01) ==
PROVIDERS: PCP Family Medicine; Referring Provider Family Medicine; Visit Provider Family Medicine
DX: J32.2 Chronic ethmoidal sinusitis (principal)
CPT/HCPCS: 70220

== ENCOUNTER → 2024-12-18 | Outpatient (CLI) | payer OTHER, MEDICAID, SELFPAY ==
[2024-12-25 06:39] LABS: Helicobacter pylori Ag, Stool* DETECTED (NOT DETECTED)
== END | disposition home or self-care (01) ==
LOC: SLDO 11:12
PROVIDERS: PCP Family Medicine; Referring Provider Family Medicine; Visit Provider Family Medicine
DX: R10.13 Epigastric pain (principal)
CPT/HCPCS: 87338